=== PATIENT | female | born 1975 | race Two or more races ===

== ENCOUNTER 2021-12-05 21:36 | Emergency (ER) | payer BC ==
[~2021-12-05] VITALS: Ht 175.3 cm; Wt 72.6 kg
[2021-12-05] MEDS ORDERED: COZAAR100 MG PO (21:54)
[2021-12-05] MEDS ORDERED: HYDRALAZINE HC100 MG PO (21:54)
== END 2021-12-06 | disposition left against medical advice (07) ==
LOC: ER 21:36
DX: Z53.21 Procedure and treatment not carried out due to patient leaving prior to being seen by health care provider (principal)